=== PATIENT | male | born 1970 | race Caucasian/White ===

== ENCOUNTER 2017-04-14 21:27 | Emergency (ER) | payer SELFPAY ==
[~2017-04-14 21:27] MED LIST: Z.0.NO CURRENT MEDS
[2017-04-14 21:28] VITALS: BP 141/77; PULSE 105; RESP 16; TEMP 98.9; O2SAT 96
--- NOTE | 2017-04-14 22:19 | RADRPT ---
EXAM DATE/TIME: 04/14/2017 21:56 [place] COMPARISON: CHEST PA & LAT, January 27, 2010, 21:43. INDICATIONS : Short of breath, chest pain MEDICAL HISTORY : Pneumothorax SURGICAL HISTORY : Chest tube placement ENCOUNTER: Initial ACUITY: Acute PAIN SCORE: Unknown LOCATION: Chest FINDINGS: PA and lateral views of the chest demonstrate the lungs to be symmetrically aerated without evidence of mass, infiltrate or effusion. The cardiomediastinal contours are unremarkable. Osseous structure s are intact. CONCLUSION: 1. No active disease. Ramez Arizmendi MD on April 14, 2017 at 22:16 Board Certified Radiologist. This report was verified electronically.
[2017-04-14] MEDS ORDERED: VENTAER INH (23:08)
[2017-04-14] MEDS ORDERED: DOXA1TAB35 PO (23:08)
[2017-04-14 23:12] VITALS: BP 132/81; PULSE 103; RESP 20; O2SAT 95
--- NOTE | 2017-04-14 23:22 | PD ---
HPI Chief Complaint: Respiratory Symptoms Time Seen by Provider: 23:17 Travel History International Travel<30 days: No Contact w/Intl Traveler<30days: No Traveled to known affect area: No History of Present Illness HPI patient is a smoker and has been out of his inhaler for 3 days, sob/wheezing not improving. denies cp/fever/abdpain/backpain/... all:morphine pmhx:copd, kidney stone, ptx active cigarette smoker. PFSH Past Medical History Blood Disorders: No Depression: Yes Heart Rhythm Problems: No Cancer: No Cardiac Catheterization: No Cardiovascular Problems: No High Cholesterol: No Congestive Heart Failure: No COPD: Yes Diabetes: No Diminished Hearing: No Diverticulitis: Yes Endocrine: No Gastrointestinal Disorders: No Genitourinary: No Hypertension: No Immune Disorder: No Kidney Stones: Yes (STENT PLACED AND REMOVED AFTER 1WK) Musculoskeletal: No Neurologic: No Respiratory: Yes (CHRONIC BRONCHITIS) Immunizations Current: Yes Myocardial Infarction: No Tetanus Vaccination: > 5 Years Influenza Vaccination: Yes Past Surgical History Coronary Artery Bypass Graft: No Genitourinary Surgery: Yes (2005--"HAD KIDNEY STONES,STENT") Thoracic Surgery: Yes (1994--CHEST TUBE,COLLAPSED LUNG) Other Surgery: No Social History Alcohol Use: No ( 6year no etoh. ) Tobacco Use: No Substance Use: No Allergies-Medications (Allergen,Severity, Reaction): Coded Allergies: morphine (Unverified Adverse Reaction, Severe, ITCHNG, 12/17/16) Reported Meds & Prescriptions Reported Meds & Active Scripts Active Doxycycline Hyclate 100 Mg Cap 100 Mg PO BID 5 Days Ventolin Hfa 18 GM Inh (Albuterol Sulfate) 90 Mcg/Act Aer 2 Puff INH Q4-6H PRN Medrol Dosepak (Methylprednisolone) 4 Mg Dspk 4 Mg PO DIRECTED Per Pharmacist direction Reported Ventolin Hfa 18 GM Inh (Albuterol Sulfate) 90 Mcg/Act Aer 2 Puff INH Q6H PRN Doxazosin (Doxazosin Mesylate) 2 Mg Tab 2 Mg PO DAILY Review of Systems General / Constitutional: No: Fever Eyes: No: Visual changes HENT: No: Headaches Cardiovascular: No: Chest Pain or Discomfort Respiratory: Positive: Cough, Wheezing Gastrointestinal: No: Abdominal Pain Genitourinary: No: Dysuria Musculoskeletal: No: Pain Skin: No Rash Neurologic: No: Weakness Psychiatric: No: Depression Endocrine: No: Polydipsia Hematologic/Lymphatic: No: Easy Bruising Physical Exam Narrative GENERAL: SKIN: Warm and dry. HEAD: Atraumatic. Normocephalic. EYES: Pupils equal and round. No scleral icterus. No injection or drainage. ENT: No nasal bleeding or discharge. Mucous membranes pink and moist. NECK: Trachea midline. No JVD. CARDIOVASCULAR: Regular rate and rhythm. RESPIRATORY: No accessory muscle use. DECREASED TV, WHEEZING DIFFUSELY GASTROINTESTINAL: Abdomen soft, non-tender, nondistended MUSCULOSKELETAL: Extremities without clubbing, cyanosis, or edema. No obvious deformities. NEUROLOGICAL: Awake and alert. No obvious cranial nerve deficits. Motor grossly within normal limits. Five out of 5 muscle strength in the arms and legs. Normal speech. PSYCHIATRIC: Appropriate mood and affect; insight and judgment normal. Data Data Last Documented VS Vital Signs Date Time Temp Pulse Resp B/P (MAP) Pulse Ox O2 Delivery O2 Flow Rate FiO2 04/15/17 00:20 04/15/17 00:19 109 18 96 Room Air 04/14/17 21:28 98.9 Orders Orders Chest, Pa & Lat (04/14/17 ) Albuterol Neb (Albuterol Neb) (04/14/17 23:30) Dexamethasone Inj (Decadron Inj) (04/14/17 23:30) Azithromycin (Zithromax) (04/14/17 23:30) Ed Discharge Order (04/15/17 00:01) [facility] Medical Decision Making Medical Screen Exam Complete: Yes Emergency Medical Condition: Yes Medical Record Reviewed: Yes Differential Diagnosis BRONCHITIS V PNA V COPD FLARE Narrative Course CXR NEG FOR PNA/PTX BUT C/W COPD CHANGES....wheezes resolved after treatment, pulse ox normal on ra 98% at time of disposition, patient is stable for d/c Diagnosis Primary Impression: COPD EXACERBATION MILD Patient Instructions: COPD (Chronic Obstructive Pulmonary Disease) (ED), General Instructions Scripts Doxycycline Hyclate (Doxycycline Hyclate) 100 Mg Cap 100 MG PO BID for Infection for 5 Days, #10 CAP 0 Refills Prov: Ronald Villareal MD 04/15/17 Albuterol 18 GM Inh (Ventolin Hfa 18 GM Inh) 90 Mcg/Act Aer 2 PUFF INH Q4-6H Y for SHORTNESS OF BREATH, #1 INHALER 0 Refills Prov: Ronald Villareal MD 04/15/17 Methylprednisolone Dosepak (Medrol Dosepak) 4 Mg Dspk 4 MG PO DIRECTED, #1 DSPK 0 Refills Per Pharmacist direction Prov: Ronald Villareal MD 04/15/17 Disposition: 01 DISCHARGE HOME Condition: Stable Ronald Villareal MD Apr 14, 2017 23:22
[2017-04-14] MEDS ORDERED: AZITHROMYCIN 250 MG TAB PO ONE (23:30)
[2017-04-14] MEDS ORDERED: DEXAMETHASONE SOD PHOS 4 MG/ML VIAL IM ONE (23:30)
[2017-04-14] MEDS: RESP: ALBUTEROL 2.5 MG/3 ML NEB (SCH) INH (23:46)
[2017-04-15] MEDS ORDERED: VENTAER INH (00:02)
[2017-04-15] MEDS ORDERED: DOXY100C PO (00:02)
[2017-04-15] MEDS ORDERED: MEDR4PAK PO (00:02)
[2017-04-15 00:19] VITALS: BP 131/77; PULSE 109; RESP 18; O2SAT 96
== END 2017-04-15 00:20 | disposition home or self-care (01) ==
LOC: NEPD 21:27
DX: J44.1 Chronic obstructive pulmonary disease with (acute) exacerbation (principal); F17.210 Nicotine dependence, cigarettes, uncomplicated
CPT/HCPCS: 71020; 94640; 94664; 96372; 99284; J1100; J7613